=== PATIENT | female | born 1950 | race Caucasian/White ===

== ENCOUNTER 2023-06-02 07:02 | Emergency (ER) | payer MEDICARE, MEDICAID, SELFPAY ==
[2023-06-02] VITALS (10 sets, daily range): BP systolic 123–147; BP diastolic 53–76; PULSE 91–103; RESP 20; TEMP 36.8; O2SAT 91–96
--- NOTE | 2023-06-02 07:00 | RT.EKG_ITS ---
APPROVED REPORT Exam: Resting ECG Reason for Exam: sob Patient Location: E HR:102 bpm ECG Measurements Heart Rate 102 AXIS AL 136 P 64 QRSd 75 QRS 3 QT 322 T 28 QTc 420 Conclusion Sinus tachycardia 102 normal axis no stemi
--- NOTE | 2023-06-02 07:25 | ED.GENADUL_ITS ---
Discharge Plan Disposition Patient Disposition: Home Discharge Details Clinical Impression: Pneumonia, Cough, Leukocytosis Primary Care Provider: Nayana Morton ED Provider: Sandeep Pineda Home Meds and New Rx's Prescriptions: New doxycycline monohydrate 100 mg capsule 100 mg PO BID 7 Days Qty: 14 0RF benzonatate 100 mg capsule 100 mg PO TID PRN (Reason: cough) Qty: 20 0RF promethazine 6.25 mg/5 mL syrup 12.5 mg PO Q6H PRN (Reason: cough) Qty: 120 0RF Discharge Instructions Instructions: Pneumonia (ED) Additional Instructions: Please start medications as prescribed. Use cough medications as needed. Use inhaler with spacer 2 puffs every 4 hours to help with cough. Please follow-up with your primary care provider later this week to make sure that you are improving. Return to the emergency department with worsening shortness of breath, not tolerating medications or any concerns. HPI General Date/Time Provider Initiated Documentation: 06/02/23 07:13 . Limitations to Documentation: no limitations . Information obtained by: patient . HPI Narrative: 72-year-old female without significant past medical history presents for evaluation of cough. Symptoms have been ongoing for the last 6 days. Did get seen by her PCP and was told that she had clear lungs. No testing was done. Patient reports cough and nasal congestion. Denies any fever. Has not had any chest pain. She reports that the cough is a dry hacking cough, nonproductive, states that sometimes she has dry heaves with it. She states that she does not have known medical problems like hypertension or diabetes. She denies a history of smoking Related Data Home Medications Medication Instructions Recorded Confirmed benzonatate 100 mg capsule 100 mg PO TID PRN cough #20 caps 06/02/23 doxycycline monohydrate 100 mg 100 mg PO BID 7 days #14 caps 06/02/23 capsule promethazine 6.25 mg/5 mL oral 12.5 mg (10 mL) PO Q6H PRN cough 06/02/23 syrup #120 mL Previous Rx's Medication Instructions Recorded benzonatate 100 mg capsule 100 mg PO TID PRN cough #20 caps 06/02/23 doxycycline monohydrate 100 mg 100 mg PO BID 7 days #14 caps 06/02/23 capsule promethazine 6.25 mg/5 mL oral 12.5 mg (10 mL) PO Q6H PRN cough 06/02/23 syrup #120 mL Allergies Allergy/AdvReac Type Severity Reaction Status Date / Time Sulfa (Sulfonamide Allergy Mild Skin Rash Verified 06/02/23 07:13 Antibiotics) General Stated Complaint: RespSymp VELIA: 3 Exam Narrative Exam Narrative: Review of Systems: All systems reviewed & are unremarkable except as noted in HPI and below Well-developed, no acute distress NCAT PERRL, normal conjunctiva Tachycardia Frequent coughing, diminished air movement, no crackles Nondistended abdomen Extremities w/o deformity, no cyanosis, no edema No rashes or lesions. no focal neurologic deficits Appropriate mood and affect Course Vital Signs Vital signs: Vital Signs Temperature 36.8 C 06/02/23 07:07 Pulse 103 H 06/02/23 07:07 Respiratory Rate 20 06/02/23 07:07 Blood Pressure 147/69 H 06/02/23 07:07 Pulse Oximetry 96 06/02/23 07:07 Temperature 36.8 C 06/02/23 07:10 Temperature Source Oral 06/02/23 07:10 Pulse 103 H 06/02/23 07:10 Respiratory Rate 20 06/02/23 07:10 Respiratory Effort Short of Breath 06/02/23 07:10 Respiratory Depth Normal 06/02/23 07:10 Blood Pressure 147/69 H 06/02/23 07:10 Blood Pressure Position Sitting 06/02/23 07:10 Pulse Oximetry 96 06/02/23 07:10 Oxygen Delivery Method Room Air 06/02/23 07:10 Oxygen Flow Rate 0 06/02/23 07:10 Pain Level 0 06/02/23 07:10 Medical Decision Making Emergent evaluation of cough. Initial differential includes URI, pneumonia, CHF. Patient has no real medical history or risk factors, but she is 72 years old. There is no documentation of her in the system, so prior medical evaluation records are not present. Patient EKG demonstrates sinus tachycardia, but no other concerning changes. Plan for a DuoNeb and reevaluation to assess response. Will get chest x-ray to evaluate for pneumonia and blood work to evaluate for possible cardiac etiology of this new cough. Lab work reviewed, significant leukocytosis, but otherwise no abnormalities or electrolyte derangement. Cardiac biomarkers are negative. Chest x-ray reviewed and independently interpreted by me, no large consolidation or pleural effusion. Patient does now endorse a history of breast cancer status postchemotherapy and surgical resection approximately 40 years ago. This did increase my suspicion for malignancy recurrence however there does not appear to be evidence of this at this time. Given her leukocytosis and cough, will treat with doxycycline. Will also provide cough medications. Patient did endorse some relief and symptom improvement after the bronchodilator, she does have an albuterol inhaler with her, but will provide a spacer and instructions on how to use it. Encouraged her to follow-up with her PCP later this week for reevaluation. Return precautions advised. Discharged in good condition. Medical Records Medical records reviewed: Yes I reviewed the patient's medical records. Lab Data Lab results reviewed: Yes I reviewed the patient's lab results. ECG Data Attestation: I personally reviewed and interpreted this ECG (s) as follows: Interpretation: Sinus tachycardia, normal axis, no acute ST segment changes Quality:SDOH Health Related Social Needs: No Data to Display PFSH All Active Problems (Updated 06/02/23 @ 08:34 by Sandeep Pineda MD) Leukocytosis (Acute) Cough (Acute) Pneumonia (Acute) Social History Smoking/Tobacco Use Status: Never Smoking risk assessment performed?: Yes Alcohol Intake: never Drug use: Never Substance use type: does not use
[2023-06-02] MEDS: Albuterol/Ipratropium 3 ML UPD VIAL UPD (07:40)
[2023-06-02 08:03] LABS: Abs Immature Grans 0.23 10^3/uL (0.0-0.06); HCT 38.8 % (36.0-46.0); HGB 13.1 g/dL (11.2-15.7); MCH 28.7 pg (27.0-33.0); MCHC 33.8 % (32.0-36.0); MCV 85 fL (80-95); RBC 4.57 10^6/uL (3.93-5.22); RDW 13.3 % (11.7-14.6); RDW-SD 41.5 fL; WBC 19.94 10^3/uL (4.4-10.8)
--- NOTE | 2023-06-02 08:07 | DI.RAD_ITS ---
Exam(s) XR CHEST 2V PA LATERAL EXAM: XR CHEST 2V PA LATERAL CLINICAL HISTORY: cough. TECHNIQUE: 2D digital imaging was performed. COMPARISON: No exams were available for comparison FINDINGS: 2 views: Heart size is normal. The mediastinum is not widened. Lungs are clear. No infiltrates nor pleural effusions. IMPRESSION: No acute pulmonary findings. DATA REPOSITORY: RADIATION DOSE DELIVERED:
[2023-06-02 08:23] LABS: Absolute Lymphocyte Count 4.99 10^3/uL (1.2-3.4); Absolute Neutrophil Count 12.56 10^3/uL (1.2-6.7); Atypical Lymphocytes % 1; Diff Comment Manual Differential; RBC Morphology Normal
[2023-06-02 08:24] LABS: ALT 51 U/L (14-59); AST 49 U/L (15-37); Albumin 2.6 g/dL (3.4-5.0); Alkaline Phosphatase 152 U/L (46-116); Anion Gap 10.3 mmol/L (3-11); BUN 17 mg/dL (7-18); Bilirubin, Total 0.5 mg/dL (0.2-1.0); CO2 25.7 mmol/L (21.0-32.0); Calcium 8.7 mg/dL (8.5-10.1); Chloride 100 mmol/L (98-107); Estimated GFR 60.61 (mL/min/1.73m2); Glucose 135 mg/dL (74-106); NT-proBNP 52 pg/mL (<300); Potassium 3.9 mmol/L (3.5-5.1); Sodium 136 mmol/L (136-145); Total Protein 7.5 g/dL (6.4-8.2); Troponin I < 50 ng/L (< or =60)
== END 2023-06-02 08:41 | disposition home or self-care (01) ==
PROVIDERS: Emergency Provider Emergency Medicine; PCP Physician Assistant Medical
DX: R05.1 Acute cough (principal); R06.02 Shortness of breath; I10 Essential (primary) hypertension; J18.9 Pneumonia, unspecified organism; D72.829 Elevated white blood cell count, unspecified
CPT/HCPCS: 80053; 93005; 94640; 99283; 71046; 83880; 84484; 85025; 93010; J7620